=== PATIENT | female | born 1960 | race Caucasian/White ===

== ENCOUNTER 2017-11-01 03:44 | Emergency (ER) | payer OTHER ==
[2017-11-01] MEDS: ACETAMINOPHEN 325 MG TAB PO (07:26)
[2017-11-01] MEDS: IBUPROFEN 600 MG TAB PO (07:26)
== END 2017-11-01 07:57 | disposition home or self-care (01) ==
LOC: FTE 03:44
DX: J06.9 Acute upper respiratory infection, unspecified (principal)
CPT/HCPCS: 99283; Z7502

== ENCOUNTER 2018-01-30 19:18 | Emergency (ER) | payer OTHER | END 2018-01-30 21:20 | disposition home or self-care (01) | LOC: FTE 19:18 | DX: T20.19XA Burn of first degree of multiple sites of head, face, and neck, initial encounter (principal); X10.2XXA Contact with fats and cooking oils, initial encounter; Y92.009 Unspecified place in unspecified non-institutional (private) residence as the place of occurrence of the external cause | CPT/HCPCS: 99283; Z7502 ==